=== PATIENT | male | born 1955 | race Caucasian/White ===

== ENCOUNTER 2016-11-01 17:20 | Observation (INO) | payer BC ==
[~2016-11-01] VITALS: Ht 177.8 cm; Wt 111.1 kg
[2016-11-01 18:53] LABS: HEMOGLOBIN 13.6 gm/dl (14.0-17.5); RED BLOOD COUNT 4.55 M/UL (4.20-5.50)
[2016-11-01 19:20] LABS: BUN/CREATININE RATIO 18 (0-10)
[2016-11-02 03:02] LABS: HEMOGLOBIN 13.5 gm/dl (14.0-17.5); RED BLOOD COUNT 4.56 M/UL (4.20-5.50); WHITE BLOOD COUNT 9.5 K/UL (4.5-11.0)
[2016-11-02 03:25] LABS: BUN/CREATININE RATIO 19 (0-10)
[2016-11-02] MEDS ORDERED: GLUCOPHAGE500 MG PO ×2 (11:09→11:10)
[2016-11-02] MEDS ORDERED: CELEBREX200 MG PO (11:10)
[2016-11-02] MEDS ORDERED: ATACAND HCT 321 EACH PO (11:12)
[2016-11-02] MEDS ORDERED: PREVACID 30 MG30 MG PO (11:12)
[2016-11-02] MEDS ORDERED: LOW DOSE ASPIRI81 MG PO (11:13)
[2016-11-02] MEDS ORDERED: FLONASE 0.05% N16 GM (11:13)
[2016-11-02] MEDS ORDERED: VITAMIN B-12250 MCG PO (11:14)
[2016-11-02] MEDS ORDERED: FISH OIL 1,0001 EAC5 PO (11:14)
[2016-11-02] MEDS ORDERED: MULTIVITAMINS1 EAC1 PO (11:15)
[2016-11-02] MEDS ORDERED: GLUCOSAMINE1000 MG PO (11:16)
[2016-11-02] MEDS ORDERED: VITAMIN C500 M1 PO (11:18)
[2016-11-02] MEDS ORDERED: ALLOPURINOL300 MG PO (11:20)
[2016-11-02] MEDS ORDERED: LIPITOR TAB 2020 MG PO (11:20)
[2016-11-02] MEDS ORDERED: SALINE NOSE SPR45 ML (11:21)
[2016-11-03 06:03] LABS: HEMOGLOBIN 13.5 gm/dl (14.0-17.5); RED BLOOD COUNT 4.62 M/UL (4.20-5.50); WHITE BLOOD COUNT 7.5 K/UL (4.5-11.0)
[2016-11-03 06:25] LABS: BUN/CREATININE RATIO 14 (0-10)
[2016-11-03] MEDS ORDERED: MIRALAX17 GM PO (13:39)
== END 2016-11-03 15:22 | disposition home or self-care (01) ==
LOC: ER1 17:20 → ZEROF 11-02 00:37 → M/S 11-02 17:15
PROVIDERS: Emergency Medicine; Internal Medicine; ADMIT Internal Medicine
DX: R55 Syncope and collapse (principal); I10 Essential (primary) hypertension; E11.9 Type 2 diabetes mellitus without complications; M19.90 Unspecified osteoarthritis, unspecified site; Z88.5 Allergy status to narcotic agent; Z79.1 Long term (current) use of non-steroidal anti-inflammatories (NSAID); Z79.84 Long term (current) use of oral hypoglycemic drugs; Z79.899 Other long term (current) drug therapy
CPT/HCPCS: ECHO; 36415; 70450; 71010; 80048; 80053; 82550; 82553; 82962; 83874; 83880; 84484; 85025; 93005; 93306; 93880; 99285; G0378; J1650

== ENCOUNTER → 2022-01-02 | Outpatient (CLI) | payer MEDICARE, OTHER ==
[~2022-01-02] MED LIST: ALLOPURINOL300 MG PO; ATACAND HCT 321 EACH PO; CELEBREX200 MG PO; FISH OIL 1,0001 EAC5 PO; FLONASE 0.05% N16 GM; GLUCOPHAGE500 MG PO; GLUCOSAMINE1000 MG PO; LIPITOR TAB 2020 MG PO; LOW DOSE ASPIRI81 MG PO; MIRALAX17 GM PO; MULTIVITAMINS1 EAC1 PO; PREVACID 30 MG30 MG PO; SALINE NOSE SPR45 ML; VITAMIN B-12250 MCG PO; VITAMIN C500 M1 PO
== END ==
LOC: KOH-I 14:13
DX: M25.561 Pain in right knee (principal); G89.29 Other chronic pain
CPT/HCPCS: 73562